=== PATIENT | female | born 1985 | race Caucasian/White ===

== ENCOUNTER 2016-07-23 20:15 | Emergency (ER) | payer BC, OTHER ==
[~2016-07-23] VITALS: Ht 177.8 cm; Wt 72.6 kg
[2016-07-23 21:11] LABS: ABSOLUTE NEUTROPHILS 7.9 thou/uL (1.4-8.2); BASOPHILS 0.7 % (0.0-2.0); EOSINOPHILS 1.3 % (0.0-3.0); HEMATOCRIT 40.6 % (37.0-47.0); HEMOGLOBIN 13.6 gm/dL (12.0-15.0); LYMPHOCYTES 30.7 % (24.0-44.0); MCH 28.5 pg (26.0-34.0); MCHC 33.6 % (28.0-37.0); MCV 84.9 fL (80.0-100.0); PLATELET COUNT 218 thou/uL (150-400); POLYS 56.3 % (36.0-66.0); RBC 4.78 mil/uL (4.20-5.00); RDW 13.6 % (10.5-14.5); WBC 14.1 thou/uL (4.0-11.0)
[2016-07-23 21:18] LABS: URINE BILIRUBIN NEGATIVE (Negative); URINE BLOOD NEGATIVE (Negative); URINE COLOR YELLOW; URINE GLUCOSE-RANDOM* NEGATIVE (Negative); URINE KETONES NEGATIVE (Negative); URINE NITRITE NEGATIVE (Negative); URINE PROTEIN (DIPSTICK) NEGATIVE (Negative); URINE SPECIFIC GRAVITY <= 1.005 (1.003-1.035); URINE UROBILINOGEN 0.2 E.U./dl (0.2-1.0)
[2016-07-23 21:19] LABS: MANUAL DIFF NO
[2016-07-23 21:26] LABS: ANION GAP 12 mmol/L (7-16); BUN 15 mg/dL (7-18); CALCIUM 8.6 mg/dL (8.5-10.1); CHLORIDE 107 mmol/L (98-107); CO2 25 mmol/L (21-32); CREATININE 0.7 mg/dL (0.6-1.3); GLUCOSE 104 mg/dL (70-99); POTASSIUM 3.3 mmol/L (3.5-5.1); SODIUM 144 mmol/L (136-145)
[2016-07-23 21:30] LABS: AMP/METHAMP Negative (Negative); BARBITURATES Negative (Negative); BENZODIAZEPINES Negative (Negative); COCAINE Negative (Negative); METHADONE Negative (Negative); OPIATES Negative (Negative); PCP Negative (Negative); THC Negative (Negative)
[2016-07-23 21:32] LABS: ALBUMIN 4.1 g/dL (3.4-5.0); ALKALINE PHOSPHATASE 70 U/L (46-116); SALICYLATE < 2.8 mg/dL (2.8-20.0); SGOT 7 U/L (15-37); SGPT 17 U/L (30-65); TOTAL BILIRUBIN 0.6 mg/dL (<0.1-1.0); TOTAL PROTEIN 7.7 g/dL (6.4-8.2)
[2016-07-23 21:43] LABS: ACETAMINOPHEN < 2 ug/mL (10-30)
[2016-07-24 01:57] VITALS: BP 96/65
== END 2016-07-24 01:58 | disposition home or self-care (01) ==
LOC: EDBD 20:15 → ER 20:15
PROVIDERS: Physician Assistant
DX: F10.129 Alcohol abuse with intoxication, unspecified (principal)